=== PATIENT | female | born 1930 | race Caucasian/White ===

== ENCOUNTER 2018-06-28 09:00 | Inpatient (IN) ==
--- NOTE | 2018-06-28 09:41 | Emergency Department Note ---
ED Disposition Clinical Impression: Acute urinary tract infection, Dehydration, Acute renal insufficiency, Hypercalcemia, Hyperkalemia, Hyperchromic anemia, History of vaginal bleeding Disposition: Admitted As Inpatient Condition on Discharge: Fair (Stable) Referrals: Kt Chapman MD [Primary Care Provider] - Time of Disposition: 10:52 - Critical Care Critical Care Time: No Attestation: On , the high probability of a clinically significant, sudden or life threatening deterioration of the following system(s) required my full and direct attention, intervention and personal management. The time I documented below is in addition to time spent performing reported procedures but includes the following listed in this critical care notation. Medical Decision Making - Medical Records Medical records reviewed: Yes: I reviewed the patient's medical records. - Ruel Inquiry Pt receiving controlled substance: No Ruel was queried for this patient: No Vital Signs: 06/28/18 09:35 06/28/18 10:30 Temperature 99.5 F Temperature Source Rectal Pulse Rate [Right Radial] 88 88 Respiratory Rate 20 20 Blood Pressure [Right Arm] 101/44 L 105/49 L Blood Pressure Mean [Right Arm] 63 67 Blood Pressure Source [Right Arm] Automatic Cuff Automatic Cuff Blood Pressure Position [Right Arm] Sitting Sitting 02 Sat by Pulse Oximetry 90 L 100 Oxygen Delivery Method Room Air Nasal Cannula Oxygen Flow Rate (LPM) 2 2 - Lab Data Lab Results 06/28/18 09:13: WBC 14.1 H, RBC 3.57 L, Hgb 11.8 L, Hct 36.0 L, MCV 100.8 H, MCH 33.0 H, MCHC 32.7, RDW 13.2, Plt Count 342, MPV 7.3 L, Neut % (Auto) 76.1, Lymph % (Auto) 17.4, [place] % (Auto) 6.1, Eos % (Auto) 0.2, Baso % (Auto) 0.3, Neut # (Auto) 10.7 H, Lymph # (Auto) 2.4, [place] # (Auto) 0.9, Eos # (Auto) 0.0, Baso # (Auto) 0.0 06/28/18 09:13: Lactate 0.8 06/28/18 09:13: Sodium 138, Potassium 5.7 H, Chloride 104, Carbon Dioxide 19 L, Anion Gap 14.9, BUN 94 H, Creatinine 3.71 H, Estimated Creat Clear 8, Estimated GFR 12 L*, Est GFR ( Amer) 14 L*, Glucose 117 H, Calcium 10.9 H, Total Bilirubin 0.3, AST 15, ALT 17, Alkaline Phosphatase 77, Troponin I < 0.02, Total Protein 6.9, Albumin 3.3 L, Globulin 3.6 H, Albumin/Globulin Ratio 0.9 L 06/28/18 09:18: Urine Color [place], Urine Appearance Turbid, Urine pH 8.5, Ur Specific [place] 1.020, Urine Protein 2+, Urine Glucose (UA) Negative, Urine Ketones Trace, Urine Blood 3+, Urine Nitrate Positive, Urine Bilirubin 2+ A, Urine Urobilinogen 0.2, Ur Leukocyte Esterase 3+ A, Urine RBC Tntc, Urine WBC Tntc A, Ur Squamous Epith Cells Occasional, Urine Bacteria 4+ A Result diagrams: 06/28/18 09:13 06/28/18 09:13 Orders (Tests/Meds): ED MEDICATIONS Generic Name Dose Route Start Last Admin Trade Name Freq PRN Reason Stop Dose Admin Sodium Chloride 1,000 mls @ 100 mls/hr 06/28/18 10:15 06/28/18 10:02 Sod Chlor 0.9% 1000ml Bag IV 07/28/18 10:14 100 mls/hr .Q10H ESAU Administration Ceftriaxone Sodium 1 gm/ 50 mls @ 100 mls/hr 06/28/18 10:45 06/28/18 10:52 Sodium Chloride IV 07/12/18 10:44 100 mls/hr Q24H ESAU Administration Protocol ORDERS Category Date Time Status Blood Culture Stat Micro 06/28/18 09:13 Received Urine Culture(cathed specimen) Stat Micro 06/28/18 09:18 Received 12-lead EKG Request [ECG Request by /Jamie] Stat Y 06/28/18 09:40 Ordered - ECG Data Tracing #1 I reviewed this ECG and interpreted as documented below: (EKG at 09:39 shows NSR at 85 BPM.) Medical Decision Narrative: 09:44 Pt evaluated. EKG, PCXR and screening labs ordered. 10:46 EKG and PCXR report reviewed. All labs reviewed. BC x 2 and UC pending. 1 L 0.9% NS @ 100 cc/hr ordered and infusing. Rocephin 1 gm IVPB ordered. Case discussed with sister in law on telephone ~10:20. Case discussed here in ER with son. I have paged Dr. Chapman regarding admission. Son aware of results of work up, diagnosis and care plan. He informed me that pt has been having some bleeding over the past week. Pt was supposed to have a pelvic US, but that has not been performed to date. 10:[address] Chapman and he has accepted admission of this pt. Son aware and all questions answered. General Adult HPI - General Stated complaint: weakness Time Seen by Provider: 06/28/18 09:28 Mode of Arrival: EMS Source of Information: Patient, EMS, Medical Record Limitations: No Limitations - History of Present Illness HPI narrative: Pt is here in the ER for evaluation from [facility] via EMS for complaint of not responding to ECF staff. EMS arrived and found her to be awake and responding to them. Pt is oriented to person. She denies having headache, chest pain or abdominal pain. She has had an occasional cough and SaO2 90% on RA upon presenting. ECF records reviewed. - Related Data Home Medications Medication Instructions Recorded Confirmed Aspirin [Aspirin 81mg chewable 81 mg PO DAILY 07/20/17 06/28/18 tab] B12/Levomefolate Calcium/B-6 1 each PO DAILY 07/20/17 06/28/18 [Folbic Rf Tablet] Bisacodyl [Dulcolax 5mg Tab] 10 mg PO DAILYP PRN 07/20/17 06/28/18 Cholecalciferol (Vitamin D3) 400 unit PO DAILY 07/20/17 06/28/18 [Vitamin D3] Clopidogrel Bisulfate [Plavix 75mg 75 mg PO DAILY 07/20/17 06/28/18 Tab] Gabapentin [Neurontin 600mg 600 mg PO TID 07/20/17 06/28/18 tablet] Hydralazine HCl [Apresoline 10mg 5 mg PO TID 07/20/17 06/28/18 tablet] Hydrocod/Acet 5/325 mg [[place] 1 - 2 tab PO Q4HP PRN 07/20/17 06/28/18 5/325mg tablet] Ibuprofen [Motrin 400mg 400 mg PO Q8HP PRN 07/20/17 06/28/18 tablet] Irbesartan 150 mg PO DAILY 07/20/17 06/28/18 Iron Ag,Ps/C/Fa6/B12/Zn/SA/Sto 1 each PO DAILY 07/20/17 06/28/18 [Niferex Tablet] Levothyroxine Sodium 25 mcg PO DAILY 07/20/17 06/28/18 [Levothyroxine 25mcg (0.025mg) Tab] Multivit-Min/FA/Lycopen/Lutein 1 each PO DAILY 07/20/17 06/28/18 [Certavite Sr-Antioxidant Tab] Vit D3-Vit K/[place]ine/Hops 1 each PO DAILY 07/20/17 06/28/18 [Ostera Tablet] dilTIAZem HCl [Diltiazem 120mg 120 mg PO DAILY 07/20/17 06/28/18 24Hr ER Cap] Oxazepam [Serax 10mg Capsule] 10 mg PO TID 06/28/18 06/28/18 Spironolactone [Aldactone 25mg 25 mg PO DAILY 06/28/18 06/28/18 Tab] Allergies Allergy/AdvReac Type Severity Reaction Status Date / Time acetaminophen Allergy Unknown Verified 08/14/17 15:42 [From DARVOCET-N] methylprednisolone Allergy Unknown Verified 08/14/17 15:42 [METHYLPREDNISOLONE] propoxyphene Allergy Unknown Verified 08/14/17 15:42 [From DARVOCET-N] Sulfa (Sulfonamide Allergy Unknown Verified 08/14/17 15:42 Antibiotics) [SULFA (SULFONAMIDE ANTIBIOTICS)] tramadol [TRAMADOL] Allergy Unknown Verified 08/14/17 15:42 trimethoprim [TRIMETHOPRIM] Allergy Unknown Verified 08/14/17 15:42 valacyclovir [From VALTREX] Allergy Unknown Verified 08/14/17 15:42 [facility] History I have reviewed the patient's past medical history: Yes Medical History: Reports:: Hypertension Other Medical History: Reports: Other (HTN, anemia, anxiety, polyneuropathy, UTI, CAD, UT, dehydration, OA) Laterality Cases: Left: Total Hip Replacement - Social History Smoking Status: Never smoker Alcohol Intake: never Housing: fdc ROS Obtained: Yes All systems reviewed & no additional complaints - Constitutional Constitutional: Reports system reviewed and no additional complaints, except as docu - Eyes Eyes: Reports system reviewed and no additional complaints, except as docu - ENT Ears, Nose, Mouth, and Throat: Reports system reviewed and no additional compla ints, except as docu - Cardiovascular Cardiovascular: Reports system reviewed and no additional complaints, except as docu - Respiratory Respiratory: Yes system reviewed and no additional complaints, except as docu, Yes as per HPI, Yes cough - Gastrointestinal Gastrointestingal: Reports: system reviewed and no additional complaints, except as docu - Genitourinary Female Genitourinary: Reports system reviewed and no additional complaints, ex cept as docu - Musculoskeletal Musculoskeletal: Reports system reviewed and no additional complaints, except as docu - Integumentary/Breasts Skin/Breast: Reports system reviewed and no additional complaints, except as docu - Neurologic Neurologic: Reports system reviewed and no additional complaints, except as docu - Endocrine Endocrine: Reports system reviewed and no additional complaints, except as docu - Hematologic/Lymphatic Henatologic/Lymphatic: Reports system reviewed and no additional complaints, except as docu - Allergic/Immunologic Allergic/Immunologic: Reports system reviewed and no additional complaints, except as docu Physical Exam - General General appearance: alert, in no apparent distress - Head Head exam: atraumatic, normocephalic, normal inspection - Eye Eye exam: Present: PERRL, EOMI - ENT ENT exam: Present: mucous membranes dry, other (Lips dry) - Neck Neck exam: Present: trachea midline - Chest Chest inspection: Present: normal inspection, symmetric chest wall rise - Respiratory Respiratory exam: Present: other (Diminished BS bilaterally. (+) occasional rhonchus cough.). Absent: wheezes, stridor - Cardiovascular Cardiovascular exam: Present: regular rate, normal heart sounds - Abdominal Exam Abdominal exam: Present: soft, hypoactive bowel sounds. Absent: distention, tenderness, guarding, rebound, rigidity - Extremities Exam Extremities exam: Present: normal inspection, full ROM. Absent: pedal edema - Neurological Exam Neurological exam: Present: alert, other (Oriented to person.). Absent: motor sensory deficit - Skin Skin exam: Present: warm, dry, intact, other (decreased turgor.)
[2018-06-28 09:57] LABS: Red Blood Count 3.57 M/mm3 (4.20-5.40); White Blood Count 14.1 K/mm3 (4.8-10.8)
[2018-06-28 09:58] LABS: Basophils % 0.3 % (0.1-2.0); Eosinophils % 0.2 % (0.1-12.0); Hemoglobin 11.8 g/dL (12.2-16.2); Lymphocytes # 2.4 K/mm3 (0.7-4.5); Lymphocytes % 17.4 % (10-50); Mean Corpuscular HGB Conc 32.7 g/dL (31.8-35.4); Mean Corpuscular Volume 100.8 fl (81-99); Mean Platelet Volume 7.3 fl (7.4-10.4); Monocytes # 0.9 K/mm3 (0.1-1.0); Monocytes % 6.1 % (1.7-9.3); Neutrophils # 10.7 K/mm3 (1.8-7.8); Neutrophils % 76.1 % (37.0-80.0); Platelet Count 342 K/mm3 (142-424); Red Cell Distribution Width 13.2 % (11.5-17.5)
[2018-06-28 10:00] LABS: Anion Gap 14.9 mEq/L (5-15); Carbon Dioxide 19 mmol/L (21.0-32.0); Chloride 104 mmol/L (98-107); Potassium 5.7 mmoL/L (3.5-5.1); Sodium 138 mmol/L (136-145)
[2018-06-28 10:01] LABS: Alanine Aminotransferase 17 U/L (12-78); Albumin Level 3.3 gm/dL (3.4-5.0); Albumin/Globulin Ratio 0.9 (1.1-1.8); Alkaline Phosphatase 77 U/L (46-116); Aspartate Amino Transferase 15 U/L (15-37); Bilirubin,Total 0.3 mg/dL (0.2-1.0); Blood Urea Nitrogen 94 mg/dL (7-18); Calcium 10.9 mg/dL (8.5-10.1); Globulin 3.6 gm/dl (1.3-3.2); Glucose 117 mg/dL (74-106); Total Protein,Serum 6.9 gm/dL (6.4-8.2)
--- NOTE | 2018-06-28 11:48 | Pharmacy Consult Notes ---
[facility] Pharmacy VTE Monitoring - Patient Demographics Admission date: 06/28/18 Report Date: 06/28/18 Time: 11:48 Allergies/Adverse Reactions: Patient Allergies acetaminophen [From DARVOCET-N] Allergy (Unknown, Verified 08/14/17 15:42) methylprednisolone [METHYLPREDNISOLONE] Allergy (Unknown, Verified 08/14/17 15:42) propoxyphene [From DARVOCET-N] Allergy (Unknown, Verified 08/14/17 15:42) Sulfa (Sulfonamide Antibiotics) [SULFA (SULFONAMIDE ANTIBIOTICS)] Allergy (Unknown, Verified 08/14/17 15:42) tramadol [TRAMADOL] Allergy (Unknown, Verified 08/14/17 15:42) trimethoprim [TRIMETHOPRIM] Allergy (Unknown, Verified 08/14/17 15:42) valacyclovir [From VALTREX] Allergy (Unknown, Verified 08/14/17 15:42) Height: 1.6 m Weight: 50.349 kg Patient Problems: Current Active Problems Acute urinary tract infection (Acute) Dehydration (Acute) Acute renal insufficiency (Acute) Hypercalcemia (Acute) Hyperkalemia (Acute) Hyperchromic anemia (Acute) History of vaginal bleeding (Acute) - VTE Risk Labs: VTE Related Lab Results Hgb 11.8 g/dL (12.2-16.2) L 06/28/18 09:13 Hct 36.0 % (37.0-47.0) L 06/28/18 09:13 Plt Count 342 K/mm3 (142-424) 06/28/18 09:13 BUN 94 mg/dL (7-18) H 06/28/18 09:13 Creatinine 3.71 mg/dL (0.55-1.02) H 06/28/18 09:13 Estimated Creat Clear 8 mL/min (50-200) 06/28/18 09:13 - Prophylaxis VTE Prophylaxis Ordered?: Yes Types of VTE Prophylaxis: TEDS Knee High Location of Applied Device: Bilateral Lower Extremeties - VTE Diagnosis Confirmed Treatment or plan recommended: Continue Current Treatment
--- NOTE | 2018-06-29 08:24 | History & Physical Report ---
*Admission Date: 06/28/18 <Rachel Clark 06/29/18 08:31> *Chief complaint: altered mental status <Rachel Clark 06/29/18 08:31> *History of present illness: Ms. Abarca is an 87-year-old female resident of [facility] who was brought to the [facility] emergency room for evaluation due to not responding to the staff. With discussion with the patient she does not recall why she came to the hospital and does not realize that she is sick. 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 With evaluation in the emergency room patient was found to be awake and responded to them. She was oriented to person. She denied headache, chest pain, and abdominal pain. She was noted to have an occasional cough with O2 sats in the 90s on room air. Patient has had some recent vaginal bleeding of minute amounts. Discussion was held with her about further evaluation and she declined 2 weeks ago. Culture of vaginal discharge was ordered but apparently was not done at [place]. Apparently she was experiencing some pain in her vaginal area last week and was started on tramadol for this. She has had a pelvic ultrasound since admission which is unremarkable. Today patient denies pain any place, shortness of breath, and nausea. <Rachel Clark 06/29/18 08:31> [facility] History Medical History: Reports:: Anxiety, Heart Murmur, Hypertension, Myocardial Infarction, Transient Ischemic Attacks (TIA) Denies:: Cancer, Diabetes Mellitus Type 1, Diabetes Mellitus Type 2, MRSA <Rachel Clark 06/29/18 08:31> Other Medical History: Reports: Arthritis, Cataracts, Other (HTN, anemia, anxiety, polyneuropathy, UTI, CAD, DC, dehydration, OA) <Rachel Clark 06/29/18 08:31> Laterality Cases: Left: Total Hip Replacement, Bilateral: Cataract <Rachel Clark 06/29/18 08:31> Other Surgeries: Yes: Cholecystectomy, Other (left kidney removed) <Rachel Clark 06/29/18 08:52> Amputation: No <Rachel Clark 06/29/18 08:31> Fractures: Yes <Rachel Clark 06/29/18 08:31> Comment: Left hip repair 04/2017 <Rachel Clark 06/29/18 08:52> - *Social History Educational Level: Completed High School <Rachel Clark 06/29/18 08:31> Smoking Status: Never smoker <Rachel Clark 06/29/18 08:31> Alcohol Intake: never <Rachel Clark Edi 06/29/18 08:31> Occupational Status: retired <Rachel Clark 06/29/18 08:31> Housing: snf (She and her share a room at [place]) <Clark,Rachel 06/29/18 08:52> - Psychiatric History Expresses thoughts of harming self/others: None <Sara Clarkharjit Daley 06/29/18 08:31> Suicide Plan Description: No Plan <Sara Clarkharjit Daley 06/29/18 08:31> Pschychiatric History:: Reports:: Anxiety <ClarkRachel - 06/29/18 08:52> *Family Hx:: Hyperlipidemia, Hypertension <Sara Clarkhy 06/29/18 08:31> Comment: 1 son with Britney Gehrig's disease in 2006 at the age of 53 <ClarkRachel allen 06/29/18 08:52> Review of Systems - Constitutional Denies fever(s), Denies headache(s) <ClarkRachel allen 06/29/18 08:52> - ENT Denies ear pain, Denies sore throat <Rachel Clark 06/29/18 08:52> - *Cardiovascular Denies chest pain, Denies shortness of breath <Rachel Clark 06/29/18 08:52> - *Respiratory Reports cough, Denies chest congestion, Denies shortness of breath <Rachel Clark 06/29/18 08:52> - *Gastrointestinal Denies constipation, Denies nausea, Denies vomiting <ClarkRachel allen 06/29/18 08:52> Comments: Patient is a poor eater. She will eat mostly mashed potatoes and drink milk. <Rachel Clark 06/29/18 08:52> - *Genitourinary Reports genital lesions, Reports pelvic pain, Reports urinary incontinence <Rachel Clark - 06/29/18 08:52> Comments: Nursing staff at [facility] has noted blood on patient's depends for several w eeks. It has been a scant amount. Cultures have been ordered but have not been done. <Clark,Rachel - 06/29/18 08:52> - *Musculoskeletal Reports muscle weakness, Denies joint pain <Rachel Clark - 06/29/18 08:52> - *Neurologic Reports weakness <Rachel Clark - 06/29/18 08:52> Meds Home Medications Medication Instructions Recorded Confirmed Type Aspirin [Aspirin 81mg chewable 81 mg PO DAILY 07/20/17 06/28/18 History tab] B12/Levomefolate Calcium/B-6 1 each PO DAILY 07/20/17 06/28/18 History [Folbic Rf Tablet] Bisacodyl [Dulcolax 5mg Tab] 10 mg PO DAILYP PRN 07/20/17 06/28/18 History Cholecalciferol (Vitamin D3) 400 unit PO DAILY 07/20/17 06/28/18 History [Vitamin D3] Clopidogrel Bisulfate [Plavix 75mg 75 mg PO DAILY 07/20/17 06/28/18 History Tab] Hydralazine HCl [Apresoline 10mg 5 mg PO TID 07/20/17 06/28/18 History tablet] Ibuprofen [Motrin 400mg 400 mg PO Q8HP PRN 07/20/17 06/28/18 History tablet] Irbesartan 150 mg PO DAILY 07/20/17 06/28/18 History Iron Ag,Ps/C/Fa6/B12/Zn/SA/Sto 1 each PO DAILY 07/20/17 06/28/18 History [Niferex Tablet] Levothyroxine Sodium 25 mcg PO DAILY 07/20/17 06/28/18 History [Levothyroxine 25mcg (0.025mg) Tab] Multivit-Min/FA/Lycopen/Lutein 1 each PO DAILY 07/20/17 06/28/18 History [Certavite Sr-Antioxidant Tab] Vit D3-Vit K/Berberine/Hops 1 each PO DAILY 07/20/17 06/28/18 History [Ostera Tablet] Escitalopram Oxalate [Lexapro] 10 mg PO DAILY 06/28/18 06/28/18 History Escitalopram Oxalate [Lexapro] 10 mg PO DAILY 06/28/18 06/28/18 History Gabapentin [Gabapentin 300mg Cap] 300 mg PO TID 06/28/18 06/28/18 History Magnesium Hydroxide [Milk of 2,400 mg PO DAILYP PRN 06/28/18 06/28/18 History Magnesia] Nystatin 1 each MC BIDP PRN 06/28/18 06/28/18 History Oxazepam [Serax 10mg Capsule] 10 mg PO TID 06/28/18 06/28/18 History Oxybutynin Chloride [Ditropan 5mg 2.5 mg PO BID 06/28/18 06/28/18 History tablet] Spironolactone [Aldactone 25mg 25 mg PO DAILY 06/28/18 06/28/18 History Tab] dilTIAZem HCl [Diltiazem 24Hr ER] 120 mg PO DAILY 06/28/18 06/28/18 History <Kt Chapman - 06/29/18 08:54> Allergies Allergy/AdvReac Type Severity Reaction Status Date / Time acetaminophen Allergy Unknown Verified 08/14/17 15:42 [From DARVOCET-N] methylprednisolone Allergy Unknown Verified 08/14/17 15:42 [METHYLPREDNISOLONE] propoxyphene Allergy Unknown Verified 08/14/17 15:42 [From DARVOCET-N] Sulfa (Sulfonamide Allergy Unknown Verified 08/14/17 15:42 Antibiotics) [SULFA (SULFONAMIDE ANTIBIOTICS)] tramadol [TRAMADOL] Allergy Unknown Verified 08/14/17 15:42 trimethoprim [TRIMETHOPRIM] Allergy Unknown Verified 08/14/17 15:42 valacyclovir [From VALTREX] Allergy Unknown Verified 08/14/17 15:42 <Kt Chapman - 06/29/18 08:54> Exam Vital signs and Labs for Last 24 Hours: Temp Pulse Resp BP Pulse Ox 97.9 F 90 16 142/57 H 96 06/29/18 08:00 06/29/18 08:00 06/29/18 08:00 06/29/18 08:00 06/29/18 08:00 Laboratory Results - last 24 hr 12/09/18 09:13: WBC 14.1 H, RBC 3.57 L, Hgb 11.8 L, Hct 36.0 L, MCV 100.8 H, MCH 33.0 H, MCHC 32.7, RDW 13.2, Plt Count 342, MPV 7.3 L, Neut % (Auto) 76.1, Lymph % (Auto) 17.4, [place] % (Auto) 6.1, Eos % (Auto) 0.2, Baso % (Auto) 0.3, Neut # (Auto) 10.7 H, Lymph # (Auto) 2.4, [place] # (Auto) 0.9, Eos # (Auto) 0.0, Baso # (Auto) 0.0 06/28/18 09:13: Lactate 0.8 06/28/18 09:13: Sodium 138, Potassium 5.7 H, Chloride 104, Carbon Dioxide 19 L, Anion Gap 14.9, BUN 94 H, Creatinine 3.71 H, Estimated Creat Clear 8, Estimated GFR 12 L*, Est GFR ( Amer) 14 L*, Glucose 117 H, Calcium 10.9 H, Total Bilirubin 0.3, AST 15, ALT 17, Alkaline Phosphatase 77, Troponin I < 0.02, Total Protein 6.9, Albumin 3.3 L, Globulin 3.6 H, Albumin/Globulin Ratio 0.9 L 06/28/18 09:18: Urine Color [place], Urine Appearance Turbid, Urine pH 8.5, Ur Specific [place] 1.020, Urine Protein 2+, Urine Glucose (UA) Negative, Urine Ketones Trace, Urine Blood 3+, Urine Nitrate Positive, Urine Bilirubin 2+ A, Urine Urobilinogen 0.2, Ur Leukocyte Esterase 3+ A, Urine RBC Tntc, Urine WBC Tntc A, Ur Squamous Epith Cells Occasional, Urine Bacteria 4+ A <[place],Kt - 06/29/18 08:54> Temp Pulse Resp BP Pulse Ox 97.9 F 90 16 142/57 H 96 06/29/18 08:00 06/29/18 08:00 06/29/18 08:00 06/29/18 08:00 06/29/18 08:00 Laboratory Results - last 24 hr 06/28/18 09:13: WBC 14.1 H, RBC 3.57 L, Hgb 11.8 L, Hct 36.0 L, MCV 100.8 H, MCH 33.0 H, MCHC 32.7, RDW 13.2, Plt Count 342, MPV 7.3 L, Neut % (Auto) 76.1, Lymph % (Auto) 17.4, [place] % (Auto) 6.1, Eos % (Auto) 0.2, Baso % (Auto) 0.3, Neut # (Auto) 10.7 H, Lymph # (Auto) 2.4, [place] # (Auto) 0.9, Eos # (Auto) 0.0, Baso # (Auto) 0.0 06/28/18 09:13: Lactate 0.8 06/28/18 09:13: Sodium 138, Potassium 5.7 H, Chloride 104, Carbon Dioxide 19 L, Anion Gap 14.9, BUN 94 H, Creatinine 3.71 H, Estimated Creat Clear 8, Estimated GFR 12 L*, Est GFR ( Amer) 14 L*, Glucose 117 H, Calcium 10.9 H, Total Bilirubin 0.3, AST 15, ALT 17, Alkaline Phosphatase 77, Troponin I < 0.02, Total Protein 6.9, Albumin 3.3 L, Globulin 3.6 H, Albumin/Globulin Ratio 0.9 L 06/28/18 09:18: Urine Color [place], Urine Appearance Turbid, Urine pH 8.5, Ur Specific [place] 1.020, Urine Protein 2+, Urine Glucose (UA) Negative, Urine Ketones Trace, Urine Blood 3+, Urine Nitrate Positive, Urine Bilirubin 2+ A, Urine Urobilinogen 0.2, Ur Leukocyte Esterase 3+ A, Urine RBC Tntc, Urine WBC Tntc A, Ur Squamous Epith Cells Occasional, Urine Bacteria 4+ A <Rachel Clark - 06/29/18 08:31> I & O for Last 24 hours: Intake & Output 06/26/18 06/27/18 06/28/18 06/29/18 11:59 11:59 11:59 11:59 Intake Total 1905 Balance 1905 Weight 111 lb 116 lb 4 oz <Bernadette Chapmanian - 06/29/18 08:54> Intake & Output 06/26/18 06/27/18 06/28/18 06/29/18 11:59 11:59 11:59 11:59 Intake Total 1905 Balance 1905 Weight 111 lb 116 lb 4 oz <Rachel Clark - 06/29/18 08:31> Microbiology Reports for the Last 24 Hours: Microbiology 06/28/18 09:18 Urine,Catheterized Urine Culture - Preliminary Gram Negative Rods <Kt Chapman - 06/29/18 08:54> Radiology Reports for the Last 24 Hours: 06/28/2018 chest x-ray IMPRESSION: Chronic density in the right lung base which may be related to chronic atelectasis/volume loss. No change with no acute finding 06/28/2018 pelvic ultrasound IMPRESSION: Unremarkable limited pelvic ultrasound <ClarkRachel 06/29/18 08:52> - Constitutional no acute distress <ClarkRachel 06/29/18 08:52> - *Routine HEENT Exam Head: Present: normocephalic, atraumatic <ClarkRachel 06/29/18 08:52> Eye: Present: PERRL. Absent: conjunctival icterus, scleral injection <ClarkRachel 06/29/18 08:52> ENT: Present: mucous membranes moist, oropharynx clear <ClarkRachel 06/29/18 08:52> - *Routine Neck Exam Absent: carotid bruit, lymphadenopathy, thyromegaly <[facility] 06/29/18 08:52> - *Routine Respiratory Exam Comments: Few bilateral rhonchi posteriorly <ClarkRachel - 06/29/18 08:52> - *Routine Cardiovascular Exam Present: RRR, murmur <ClarkRachel - 06/29/18 08:52> - *Routine Abdominal Exam Present: soft, normoactive bowel sounds. Absent: tenderness, distended <ClarkSaraRachel - 06/29/18 08:52> - *Routine Extremities Exam Absent: edema, calf tenderness <ClarkRachel - 06/29/18 08:52> - *Routine Neurological Exam Present: alert (Seen. Slightly lethargic) <Rachel Clark 06/29/18 08:52> Assessment and Plan (1) Acute renal insufficiency Current visit: Yes Status: Acute Category: Medical Code(s): N28.9 - Disorder of kidney and ureter, unspecified (2) Acute urinary tract infection Current visit: Yes Status: Acute Category: Medical Code(s): N39.0 - Urinary tract infection, site not specified (3) Dehydration Current visit: Yes Status: Acute Category: Medical Code(s): E86.0 - Dehydration (4) History of vaginal bleeding Current visit: Yes Status: Acute Category: Medical Code(s): Z87.42 - Personal history of other diseases of the female genital tract (5) Hyperkalemia Current visit: Yes Status: Acute Category: Medical Code(s): E87.5 - Hyperkalemia (6) H/O post-polio syndrome Current visit: No Status: Acute Category: Medical Code(s): Z86.12 - Personal history of poliomyelitis <Kt Chapman - 06/29/18 08:54> (1) Acute renal insufficiency Current visit: Yes Status: Acute Category: Medical Code(s): N28.9 - Disorder of kidney and ureter, unspecified (2) Acute urinary tract infection Current visit: Yes Status: Acute Category: Medical Code(s): N39.0 - Urinary tract infection, site not specified (3) Dehydration Current visit: Yes Status: Acute Category: Medical Code(s): E86.0 - Dehydration (4) History of vaginal bleeding Current visit: Yes Status: Acute Category: Medical Code(s): Z87.42 - Personal history of other diseases of the female genital tract (5) Hyperkalemia Current visit: Yes Status: Acute Category: Medical Code(s): E87.5 - Hyperkalemia (6) H/O post-polio syndrome Current visit: No Status: Acute Category: Medical Code(s): Z86.12 - Personal history of poliomyelitis <Rachel Clark - 06/29/18 08:35> - Assessment and plan all Dx Assessment and Plan for all problems:: Saw patient, agree with above note. <Kt Chapman - 06/29/18 08:54> We will continue with IV fluids and Rocephin. We will repeat labs this morning. White blood cell count on admission was 14.1; potassium was 5.7; with a BUN and creatinine of 94/3.71 and <Rachel Clark - 06/29/18 08:52>
[2018-06-29 09:23] LABS: Lymphocytes # 1.5 K/mm3 (0.7-4.5); Mean Corpuscular Hemoglobin 33.1 pg (27.0-31.2); Monocytes # 0.4 K/mm3 (0.1-1.0)
[2018-06-29 09:27] LABS: Anion Gap 15.4 mEq/L (5-15); Potassium 4.4 mmoL/L (3.5-5.1)
[2018-06-29 09:29] LABS: Basophils % 0.4 % (0.1-2.0); Eosinophils # 0.3 K/mm3 (0.0-0.4); Eosinophils % 3.4 % (0.1-12.0); Hematocrit 29.2 % (37.0-47.0); Lymphocytes % 15.5 % (10-50); Mean Corpuscular HGB Conc 32.7 g/dL (31.8-35.4); Mean Platelet Volume 7.4 fl (7.4-10.4); Neutrophils # 7.6 K/mm3 (1.8-7.8); Neutrophils % 76.6 % (37.0-80.0); Platelet Count 284 K/mm3 (142-424); Red Blood Count 2.89 M/mm3 (4.20-5.40); Red Cell Distribution Width 13.1 % (11.5-17.5); White Blood Count 9.9 K/mm3 (4.8-10.8)
[2018-06-29 09:35] LABS: Hemoglobin 9.5 g/dL (12.2-16.2)
[2018-06-29 09:37] LABS: Calcium 9.4 mg/dL (8.5-10.1)
[2018-06-30 06:20] LABS: Basophils % 0.3 % (0.1-2.0); Eosinophils # 0.4 K/mm3 (0.0-0.4); Eosinophils % 4.7 % (0.1-12.0); Hematocrit 27.2 % (37.0-47.0); Hemoglobin 8.8 g/dL (12.2-16.2); Lymphocytes # 1.8 K/mm3 (0.7-4.5); Lymphocytes % 20.1 % (10-50); Mean Corpuscular HGB Conc 32.5 g/dL (31.8-35.4); Mean Corpuscular Volume 101.7 fl (81-99); Mean Platelet Volume 7.5 fl (7.4-10.4); Monocytes # 0.5 K/mm3 (0.1-1.0); Monocytes % 5.4 % (1.7-9.3); Neutrophils # 6.2 K/mm3 (1.8-7.8); Neutrophils % 69.4 % (37.0-80.0); Platelet Count 252 K/mm3 (142-424); Red Blood Count 2.67 M/mm3 (4.20-5.40); Red Cell Distribution Width 13.4 % (11.5-17.5); White Blood Count 8.9 K/mm3 (4.8-10.8)
[2018-06-30 06:25] LABS: Anion Gap 11.4 mEq/L (5-15); Calcium 8.9 mg/dL (8.5-10.1); Potassium 4.4 mmoL/L (3.5-5.1)
--- NOTE | 2018-06-30 08:36 | Progress Note ---
<Rachel Clark - Last Filed: 06/30/18 08:33> Internal Medicine - PN: Subj *Date: 06/30/18 *Time: 08:33 Interval history: Per nursing: Patient is doing better. She has been more awake. She has been eating satisfactory when fed. She is actually eating some ground meats. No further bleeding noted. Patient states she is feeling better. She denies pain and shortness of breath Exam Vital signs and Labs for Last 24 Hours: Temp Pulse Resp BP Pulse Ox 97.8 F 85 18 132/61 97 06/30/18 04:00 06/30/18 04:00 06/30/18 04:00 06/30/18 04:00 06/30/18 04:00 Laboratory Results - last 24 hr 06/29/18 09:10: Sodium 141, Potassium 4.4 D, Chloride 110 H, Carbon Dioxide 20 L, Anion Gap 15.4 H, BUN 84 H, Creatinine 2.71 H D, Estimated Creat Clear 12, Estimated GFR 17 L*, Est GFR ( Amer) 20 L D, Glucose 120 H, Calcium 9.4 D 06/29/18 09:10: WBC 9.9 D, RBC 2.89 L, Hgb 9.5 L D, Hct 29.2 L, MCV 101.0 H, MCH 33.1 H, MCHC 32.7, RDW 13.1, Plt Count 284, MPV 7.4, Neut % (Auto) 76.6, Lymph % (Auto) 15.5, [place] % (Auto) 4.0, Eos % (Auto) 3.4, Baso % (Auto) 0.4, Neut # (Auto) 7.6, Lymph # (Auto) 1.5, [place] # (Auto) 0.4, Eos # (Auto) 0.3, Baso # (Auto) 0.0 06/30/18 05:50: WBC 8.9, RBC 2.67 L, Hgb 8.8 L, Hct 27.2 L, MCV 101.7 H, MCH 33.0 H, MCHC 32.5, RDW 13.4, Plt Count 252, MPV 7.5, Neut % (Auto) 69.4, Lymph % (Auto) 20.1, [place] % (Auto) 5.4, Eos % (Auto) 4.7, Baso % (Auto) 0.3, Neut # (Auto) 6.2, Lymph # (Auto) 1.8, [place] # (Auto) 0.5, Eos # (Auto) 0.4, Baso # (Auto) 0.0 06/30/18 05:50: Sodium 143, Potassium 4.4, Chloride 114 H, Carbon Dioxide 22, Anion Gap 11.4, BUN 62 H D, Creatinine 1.53 H D, Estimated Creat Clear 21, Estimated GFR 32 L, Est GFR ( Amer) 39 L D, Glucose 93 D, Calcium 8.9 I & O for Last 24 hours: Intake & Output 06/27/18 06/28/18 06/29/18 06/30/18 11:59 11:59 11:59 11:59 Intake Total 1906 / 1906 2978 / 2978 Balance 190 / 1906 2978 / 2978 Weight 111 lb 116 lb 4 oz 124 lb 6 oz Microbiology Reports for the Last 24 Hours: Microbiology 06/28/18 09:18 Urine,Catheterized Urine Culture - Final Citrobacter koseri Sensitive to Rocephin - Constitutional no acute distress Comments: Awakened for exam. Eyes are more focused and wide open this a.m. She is ready to eat breakfast. - *Routine Respiratory Exam Present: CTA bilaterally (Anteriorly and posteriorly) - *Routine Cardiovascular Exam Present: RRR - *Routine Abdominal Exam Present: soft. Absent: tenderness, distended - *Routine Extremities Exam Absent: edema, calf tenderness - *Routine Neurological Exam Present: alert Assessment and Plan (1) Acute renal insufficiency Current visit: Yes Status: Acute Category: Medical Code(s): N28.9 - Disorder of kidney and ureter, unspecified (2) Acute urinary tract infection Current visit: Yes Status: Acute Category: Medical Code(s): N39.0 - Urinary tract infection, site not specified (3) Dehydration Current visit: Yes Status: Acute Category: Medical Code(s): E86.0 - Dehydration (4) History of vaginal bleeding Current visit: Yes Status: Acute Category: Medical Code(s): Z87.42 - Personal history of other diseases of the female genital tract (5) Hyperkalemia Current visit: Yes Status: Acute Category: Medical Code(s): E87.5 - Hyperkalemia (6) H/O post-polio syndrome Current visit: No Status: Acute Category: Medical Code(s): Z86.12 - Personal history of poliomyelitis - Assessment and plan all Dx Assessment and Plan for all problems:: BUN and creatinine greatly improved. White blood cell count and potassium are normal. We will continue with Rocephin IV. We will continue with assistance with eating. We will continue with IV fluids at present. <Kt Chapman - Last Filed: 06/30/18 09:14> Exam Vital signs and Labs for Last 24 Hours: Temp Pulse Resp BP Pulse Ox 97.8 F 85 18 132/61 97 06/30/18 04:00 06/30/18 04:00 06/30/18 04:00 06/30/18 04:00 06/30/18 04:00 Laboratory Results - last 24 hr 06/29/18 09:10: Sodium 141, Potassium 4.4 D, Chloride 110 H, Carbon Dioxide 20 L, Anion Gap 15.4 H, BUN 84 H, Creatinine 2.71 H D, Estimated Creat Clear 12, Estimated GFR 17 L*, Est GFR ( Amer) 20 L D, Glucose 120 H, Calcium 9.4 D 06/29/18 09:10: WBC 9.9 D, RBC 2.89 L, Hgb 9.5 L D, Hct 29.2 L, MCV 101.0 H, MCH 33.1 H, MCHC 32.7, RDW 13.1, Plt Count 284, MPV 7.4, Neut % (Auto) 76.6, Lymph % (Auto) 15.5, [place] % (Auto) 4.0, Eos % (Auto) 3.4, Baso % (Auto) 0.4, Neut # (Auto) 7.6, Lymph # (Auto) 1.5, [place] # (Auto) 0.4, Eos # (Auto) 0.3, Baso # (Auto) 0.0 06/30/18 05:50: WBC 8.9, RBC 2.67 L, Hgb 8.8 L, Hct 27.2 L, MCV 101.7 H, MCH 33.0 H, MCHC 32.5, RDW 13.4, Plt Count 252, MPV 7.5, Neut % (Auto) 69.4, Lymph % (Auto) 20.1, [place] % (Auto) 5.4, Eos % (Auto) 4.7, Baso % (Auto) 0.3, Neut # (Auto) 6.2, Lymph # (Auto) 1.8, [place] # (Auto) 0.5, Eos # (Auto) 0.4, Baso # (Auto) 0.0 06/30/18 05:50: Sodium 143, Potassium 4.4, Chloride 114 H, Carbon Dioxide 22, Anion Gap 11.4, BUN 62 H D, Creatinine 1.53 H D, Estimated Creat Clear 21, Estimated GFR 32 L, Est GFR ( Amer) 39 L D, Glucose 93 D, Calcium 8.9 I & O for Last 24 hours: Intake & Output 06/27/18 06/28/18 06/29/18 06/30/18 11:59 11:59 11:59 11:59 Intake Total 1906 / 1906 2978 / 2978 Balance 1906 / 1906 2978 / 2978 Weight 111 lb 116 lb 4 oz 124 lb 6 oz Microbiology Reports for the Last 24 Hours: Microbiology 06/28/18 09:18 Urine,Catheterized Urine Culture - Final Citrobacter koseri Assessment and Plan (1) Acute renal insufficiency Current visit: Yes Status: Acute Category: Medical Code(s): N28.9 - Disorder of kidney and ureter, unspecified (2) Acute urinary tract infection Current visit: Yes Status: Acute Category: Medical Code(s): N39.0 - Urinary tract infection, site not specified (3) Dehydration Current visit: Yes Status: Acute Category: Medical Code(s): E86.0 - Dehydration (4) History of vaginal bleeding Current visit: Yes Status: Acute Category: Medical Code(s): Z87.42 - Personal history of other diseases of the female genital tract (5) Hyperkalemia Current visit: Yes Status: Acute Category: Medical Code(s): E87.5 - Hyperkalemia (6) H/O post-polio syndrome Current visit: No Status: Acute Category: Medical Code(s): Z86.12 - Personal history of poliomyelitis (7) Chronic renal disease, stage 4, severely decreased glomerular filtration rate (GFR) between 15-29 mL/min/1.73 square meter Current visit: Yes Status: Acute Category: Medical Code(s): N18.4 - Chronic kidney disease, stage 4 (severe) - Assessment and plan all Dx Assessment and Plan for all problems:: Saw patient, agree with above note. H/H has dropped with hydration. Will continue to monitor.
[2018-07-01 06:10] LABS: Basophils % 0.3 % (0.1-2.0); Eosinophils # 0.4 K/mm3 (0.0-0.4); Eosinophils % 4.5 % (0.1-12.0); Hematocrit 27.1 % (37.0-47.0); Hemoglobin 8.8 g/dL (12.2-16.2); Lymphocytes # 1.7 K/mm3 (0.7-4.5); Lymphocytes % 20.6 % (10-50); Mean Corpuscular HGB Conc 32.7 g/dL (31.8-35.4); Mean Corpuscular Hemoglobin 32.8 pg (27.0-31.2); Mean Corpuscular Volume 100.4 fl (81-99); Mean Platelet Volume 7.3 fl (7.4-10.4); Monocytes # 0.4 K/mm3 (0.1-1.0); Monocytes % 4.7 % (1.7-9.3); Neutrophils # 5.9 K/mm3 (1.8-7.8); Neutrophils % 69.9 % (37.0-80.0); Platelet Count 265 K/mm3 (142-424); Red Blood Count 2.69 M/mm3 (4.20-5.40); Red Cell Distribution Width 13.2 % (11.5-17.5); White Blood Count 8.4 K/mm3 (4.8-10.8)
[2018-07-01 06:14] LABS: Anion Gap 14.2 mEq/L (5-15); Calcium 8.9 mg/dL (8.5-10.1); Potassium 4.2 mmoL/L (3.5-5.1)
--- NOTE | 2018-07-01 08:47 | Progress Note ---
Internal Medicine - PN: Subj *Date: 07/01/18 *Time: 08:43 Interval history: Patient states that she is better today. She wishes to go home. She denies chest pain and shortness of breath. She states she enjoyed her breakfast and is drinking Ensure. Exam Vital signs and Labs for Last 24 Hours: Temp Pulse Resp BP Pulse Ox 98.1 F 91 H 20 120/51 L 99 07/01/18 08:00 07/01/18 08:00 07/01/18 08:00 07/01/18 08:00 07/01/18 08:00 Laboratory Results - last 24 hr 07/01/18 05:42: WBC 8.4, RBC 2.69 L, Hgb 8.8 L, Hct 27.1 L, MCV 100.4 H, MCH 32.8 H, MCHC 32.7, RDW 13.2, Plt Count 265, MPV 7.3 L, Neut % (Auto) 69.9, Lymph % (Auto) 20.6, [place] % (Auto) 4.7, Eos % (Auto) 4.5, Baso % (Auto) 0.3, Neut # (Auto) 5.9, Lymph # (Auto) 1.7, [place] # (Auto) 0.4, Eos # (Auto) 0.4, Baso # (Auto) 0.0 07/01/18 05:42: Sodium 144, Potassium 4.2, Chloride 112 H, Carbon Dioxide 22, Anion Gap 14.2, BUN 45 H D, Creatinine 1.11 H D, Estimated Creat Clear 31, Jeanne mated GFR 46 L, Est GFR ( Amer) 56 L D, Glucose 107 H, Calcium 8.9 I & O for Last 24 hours: Intake & Output 06/28/18 06/29/18 06/30/18 07/01/18 11:59 11:59 11:59 11:59 Intake Total 1905 3838 / 3838 1531 / 1531 Balance 1905 / 1905 3838 / 3838 1531 / 1531 Weight 111 lb 116 lb 4 oz 124 lb 6 oz 125 lb 3 oz Microbiology Reports for the Last 24 Hours: Microbiology 06/28/18 09:13 Blood Blood Culture - Preliminary NO GROWTH AFTER 48 HOURS 06/28/18 09:13 Blood Blood Culture - Preliminary NO GROWTH AFTER 48 HOURS 06/28/18 09:18 Urine,Catheterized Urine Culture - Final Citrobacter koseri - Constitutional no acute distress - *Routine Respiratory Exam Present: CTA bilaterally (Anteriorly and posteriorly) - *Routine Cardiovascular Exam Present: RRR - *Routine Abdominal Exam Present: soft, normoactive bowel sounds. Absent: tenderness - *Routine Extremities Exam Absent: edema, calf tenderness - *Routine Neurological Exam Present: alert, oriented X3 Assessment and Plan (1) Acute renal insufficiency Current visit: Yes Status: Acute Category: Medical Code(s): N28.9 - Disorder of kidney and ureter, unspecified (2) Acute urinary tract infection Current visit: Yes Status: Acute Category: Medical Code(s): N39.0 - Urinary tract infection, site not specified (3) Dehydration Current visit: Yes Status: Acute Category: Medical Code(s): E86.0 - Dehydration (4) History of vaginal bleeding Current visit: Yes Status: Acute Category: Medical Code(s): Z87.42 - Personal history of other diseases of the female genital tract (5) Hyperkalemia Current visit: Yes Status: Acute Category: Medical Code(s): E87.5 - Hyperkalemia (6) H/O post-polio syndrome Current visit: No Status: Acute Category: Medical Code(s): Z86.12 - Personal history of poliomyelitis (7) Chronic renal disease, stage 4, severely decreased glomerular filtration rate (GFR) between 15-29 mL/min/1.73 square meter Current visit: Yes Status: Acute Category: Medical Code(s): N18.4 - Chronic kidney disease, stage 4 (severe) - Assessment and plan all Dx Assessment and Plan for all problems:: Patient remains anemic with stable hemoglobin at 8.8. Creatinine has gradually improved. Patient is stable to be transferred back to [facility] today with oral antibiotics. See discharge orders
--- NOTE | 2018-07-01 08:49 | Discharge Summary ---
General - General Admission date:: 06/28/18 Discharge date: 07/01/18 HPI HPI: Ms. Abarca is an 87-year-old female resident of [facility] who was brought to the [facility] emergency room for evaluation due to not responding to the staff. With discussion with the patient she does not recall why she came to the hospital and does not realize that she is sick. 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 With evaluation in the emergency room patient was found to be awake and responded to them. She was oriented to person. She denied headache, chest pain, and abdominal pain. She was noted to have an occasional cough with O2 sats in the 90s on room air. Patient has had some recent vaginal bleeding of minute amounts. Discussion was held with her about further evaluation and she declined 2 weeks ago. Culture of vaginal discharge was ordered but apparently was not done at [facility]. Apparently she was experiencing some pain in her vaginal area last week and was started on tramadol for this. Hospital Course Hospital Course: On admission potassium was 5.7 and creatinine 3.71. She was started on IV fluids at 125/h. Hydration improved and potassium normalized and creatinine.. White blood cell also normalized. Hemoglobin decreased with hydration and was monitored. She was started on Rocephin IV daily. Pelvic ultrasound was unremarkable. Patient improved daily and began to eat better. She actually ate better than she did at [facility]. She seemed to like ground meats and Ensure. She had to be fed. Her kidney was functioned normally. She continually denied chest pain shortness of breath. She did not get out of bed. No vaginal bleeding was noted during this admission. On 07/01/2018 patient was stable to be discharged back to [facility]. Condition at discharge stable and satisfactory. She will continue with oral antibiotics and be followed Dr. Chapman in the home. She will need repeat CBC and BMP in 3 days . Objective Vital signs: Temp Pulse Resp BP Pulse Ox 98.1 F 91 H 20 120/51 L 99 07/01/18 08:00 07/01/18 08:00 07/01/18 08:00 07/01/18 08:00 07/01/18 08:00 Narrative: Microbiology 06/28/18 09:13 Blood Blood Culture - Preliminary NO GROWTH AFTER 48 HOURS 06/28/18 09:13 Blood Blood Culture - Preliminary NO GROWTH AFTER 48 HOURS 06/28/18 09:18 Urine,Catheterized Urine Culture - Final Citrobacter koseri - Constitutional no acute distress - *Routine Respiratory Exam Present: CTA bilaterally (Anteriorly and posteriorly) - *Routine Cardiovascular Exam Present: RRR - *Routine Abdominal Exam Present: soft, normoactive bowel sounds. Absent: tenderness - *Routine Extremities Exam Absent: edema, calf tenderness - *Routine Neurological Exam Present: alert, oriented X3 Results Labs on day of discharge: Labs from last 24 hours 07/01/18 07/01/18 05:42 05:42 WBC 8.4 RBC 2.69 L Hgb 8.8 L Hct 27.1 L MCV 100.4 H MCH 32.8 H MCHC 32.7 RDW 13.2 Plt Count 265 MPV 7.3 L Neut % (Auto) 69.9 Lymph % (Auto) 20.6 [place] % (Auto) 4.7 Eos % (Auto) 4.5 Baso % (Auto) 0.3 Neut # (Auto) 5.9 Lymph # (Auto) 1.7 [place] # (Auto) 0.4 Eos # (Auto) 0.4 Baso # (Auto) 0.0 Sodium 144 Potassium 4.2 Chloride 112 H Carbon Dioxide 22 Anion Gap 14.2 BUN 45 H D Creatinine 1.11 H D Estimated Creat Clear 31 Estimated GFR 46 L Est GFR ( Amer) 56 L D Glucose 107 H Calcium 8.9 Preliminary micro results at discharge 06/28/18 09:13 Blood Culture - Preliminary Blood NO GROWTH AFTER 48 HOURS 06/28/18 09:13 Blood Culture - Preliminary Blood NO GROWTH AFTER 48 HOURS - Impressions 06/28/2018 chest x-ray IMPRESSION: Chronic density in the right lung base which may be related to chronic atelectasis/volume loss. No change with no acute finding 06/28/2018 pelvic ultrasound IMPRESSION: Unremarkable limited pelvic ultrasound DS: Diagnosis - Discharge Diagnosis (1) Acute renal insufficiency Status: Acute (2) Acute urinary tract infection Status: Acute (3) Dehydration Status: Acute (4) History of vaginal bleeding Status: Acute (5) Hyperkalemia Status: Acute (6) H/O post-polio syndrome Status: Acute (7) Chronic renal disease, stage 4, severely decreased glomerular filtration rate (GFR) between 15-29 mL/min/1.73 square meter Status: Acute (8) Anemia Status: Chronic Discharge Plan - Patient Discharge Instructions ACTIVITY: Continue current activity DIET: continue same diet Additional Instructions: Patient needs CBC and BMP in 1 week. Patient Instructions: DI for Dehydration -- Adult, DI for Urinary Tract Infection (UTI) - Follow up Plan Follow up with: Kt Chapman MD [Primary Care Provider] - Disposition: [facility] Home Medications: Home Medications Medication Instructions Recorded Confirmed Type Aspirin [Aspirin 81mg chewable 81 mg PO DAILY 07/20/17 06/28/18 History tab] B12/Levomefolate Calcium/B-6 1 each PO DAILY 07/20/17 06/28/18 History [Folbic Rf Tablet] Bisacodyl [Dulcolax 5mg Tab] 10 mg PO DAILYP PRN 07/20/17 06/28/18 History Cholecalciferol (Vitamin D3) 400 unit PO DAILY 07/20/17 06/28/18 History [Vitamin D3] Clopidogrel Bisulfate [Plavix 75mg 75 mg PO DAILY 07/20/17 06/28/18 History Tab] Hydralazine HCl [Apresoline 10mg 5 mg PO TID 07/20/17 06/28/18 History tablet] Ibuprofen [Motrin 400mg 400 mg PO Q8HP PRN 07/20/17 06/28/18 History tablet] Irbesartan 150 mg PO DAILY 07/20/17 06/28/18 History Iron Ag,Ps/C/Fa6/B12/Zn/SA/Sto 1 each PO DAILY 07/20/17 06/28/18 History [Niferex Tablet] Levothyroxine Sodium 25 mcg PO DAILY 07/20/17 06/28/18 History [Levothyroxine 25mcg (0.025mg) Tab] Multivit-Min/FA/Lycopen/Lutein 1 each PO DAILY 07/20/17 06/28/18 History [Certavite Sr-Antioxidant Tab] Vit D3-Vit K/Berberine/Hops 1 each PO DAILY 07/20/17 06/28/18 History [Ostera Tablet] Escitalopram Oxalate [Lexapro] 10 mg PO DAILY 06/28/18 06/28/18 History Gabapentin [Gabapentin 300mg Cap] 300 mg PO TID 06/28/18 06/28/18 History Magnesium Hydroxide [Milk of 2,400 mg PO DAILYP PRN 06/28/18 06/28/18 History Magnesia] Nystatin 1 each MC BIDP PRN 06/28/18 06/28/18 History Oxazepam [Serax 10mg Capsule] 10 mg PO TID 06/28/18 06/28/18 History Oxybutynin Chloride [Ditropan 5mg 2.5 mg PO BID 06/28/18 06/28/18 History tablet] Spironolactone [Aldactone 25mg 25 mg PO DAILY 06/28/18 06/28/18 History Tab] dilTIAZem HCl [Diltiazem 24Hr ER] 120 mg PO DAILY 06/28/18 06/28/18 History Prescriptions/Medication Reconciliation: New cefUROXime axetil [Ceftin 250mg Tablet] 250 mg PO BID #20 tab Continue Clopidogrel Bisulfate [Plavix 75mg Tab] 75 mg PO DAILY Bisacodyl [Dulcolax 5mg Tab] 10 mg PO DAILYP PRN PRN Reason: Constipation Aspirin [Aspirin 81mg chewable tab] 81 mg PO DAILY Ibuprofen [Motrin 400mg tablet] 400 mg PO Q8HP PRN PRN Reason: PAIN Iron Ag,Ps/C/Fa6/B12/Zn/SA/Sto [Niferex Tablet] 1 each PO DAILY Irbesartan 150 mg PO DAILY Vit D3-Vit K/Berberine/Hops [Ostera Tablet] 1 each PO DAILY Multivit-Min/FA/Lycopen/Lutein [Certavite Sr-Antioxidant Tab] 1 each PO DAILY Levothyroxine Sodium [Levothyroxine 25mcg (0.025mg) Tab] 25 mcg PO DAILY Cholecalciferol (Vitamin D3) [Vitamin D3] 400 unit PO DAILY B12/Levomefolate Calcium/B-6 [Folbic Rf Tablet] 1 each PO DAILY Oxazepam [Serax 10mg Capsule] 10 mg PO TID Oxybutynin Chloride [Ditropan 5mg tablet] 2.5 mg PO BID Escitalopram Oxalate [Lexapro] 10 mg PO DAILY Hydralazine HCl [Apresoline 10mg tablet] 5 mg PO TID Spironolactone [Aldactone 25mg Tab] 25 mg PO DAILY dilTIAZem HCl [Diltiazem 24Hr ER] 120 mg PO DAILY Gabapentin [Gabapentin 300mg Cap] 300 mg PO TID Magnesium Hydroxide [Milk of Magnesia] 2,400 mg PO DAILYP PRN PRN Reason: Constipation Nystatin 1 each MC BIDP PRN PRN Reason: yeast
== END 2018-07-01 10:17 ==
LOC: ER 09:00 → 2ND 09:00 → OBSVTOIN 10:58 → 2ND 12:13
PROVIDERS: ADMIT Family Medicine; ATTEND Family Medicine